=== PATIENT | female | born 1970 | race Caucasian/White ===

== ENCOUNTER 2017-09-20 16:26 | Emergency (ER) | payer MEDICAID ==
[2017-09-20] MEDS: KETOROLAC 30 MG INJ IM (18:21)
== END 2017-09-20 18:45 | disposition home or self-care (01) ==
LOC: FTE 16:26
DX: B02.9 Zoster without complications (principal); M25.511 Pain in right shoulder; F17.210 Nicotine dependence, cigarettes, uncomplicated
CPT/HCPCS: 96372; 99284-25; J1885

== ENCOUNTER 2018-07-22 05:17 | Emergency (ER) | payer BC, MEDICAID ==
[2018-07-22] MEDS: KETOROLAC 30 MG INJ IM (06:19)
== END 2018-07-22 06:17 | disposition home or self-care (01) ==
LOC: FTE 06:17
DX: M62.838 Other muscle spasm (principal); Z87.891 Personal history of nicotine dependence
CPT/HCPCS: 81025; 96372; 99284-25

== ENCOUNTER 2018-09-06 07:32 | Emergency (ER) | payer BC ==
[2018-09-06] MEDS: IBUPROFEN 800 MG TAB PO (07:58)
== END 2018-09-06 08:50 | disposition home or self-care (01) ==
LOC: FTE 07:32
DX: S63.502A Unspecified sprain of left wrist, initial encounter (principal); F17.210 Nicotine dependence, cigarettes, uncomplicated; W20.8XXA Other cause of strike by thrown, projected or falling object, initial encounter; Y92.9 Unspecified place or not applicable
CPT/HCPCS: 29125; 73110-LT; 99283-25